=== PATIENT | male | born 1990 | race Caucasian/White ===

== ENCOUNTER 2019-01-02 13:49 | Emergency (ER) | payer SELFPAY ==
[~2019-01-02] VITALS: Ht 170.2 cm; Wt 66.8 kg
[2019-01-02 14:05] VITALS: BP 125/76
[2019-01-02] MEDS ORDERED: HYDR-4061 PO (14:19)
[2019-01-02] MEDS ORDERED: AMOX500C2 PO (14:19)
== END 2019-01-02 15:30 | disposition left against medical advice (07) ==
LOC: EMS 13:51
DX: F32.9 Major depressive disorder, single episode, unspecified (principal); Z53.21 Procedure and treatment not carried out due to patient leaving prior to being seen by health care provider